=== PATIENT | male | born 1995 | race Caucasian/White ===

== ENCOUNTER 2024-01-01 15:36 | Emergency (ER) | payer OTHER ==
[2024-01-01 16:01] VITALS: BP 140/94; PULSE 102; RESP 16; TEMP 98.6; BMI 22.9
[2024-01-01] MEDS ORDERED: LIDOCAINE 1%/EPI 1:100000 (50 ML MULTI DOSE VIAL) INF ONE (17:15)
== END 2024-01-01 17:29 | disposition home or self-care (01) ==
LOC: JERFT 15:36
PROC: 0HQ1XZZ Repair Face Skin, External Approach (ICD-10-PCS; principal; 2024-01-01)
DX: S01.111A Laceration without foreign body of right eyelid and periocular area, initial encounter (principal); W22.8XXA Striking against or struck by other objects, initial encounter; Y92.239 Unspecified place in hospital as the place of occurrence of the external cause; Y99.0 Civilian activity done for income or pay
CPT/HCPCS: 99283-25

== ENCOUNTER 2024-01-08 09:21 | Emergency (ER) | payer OTHER ==
[2024-01-08 09:25] VITALS: BP 123/80; PULSE 88; RESP 18; TEMP 98; BMI 22.9
== END 2024-01-08 09:59 | disposition home or self-care (01) ==
LOC: JERFT 09:21
DX: Z48.02 Encounter for removal of sutures (principal)
CPT/HCPCS: 99281-25